=== PATIENT | male | born 1940 | race Caucasian/White ===

== ENCOUNTER 2019-06-17 22:33 | Observation (INO) ==
[2019-06-18 01:36] LABS: BASO# 0.01 X1000 (0.0-0.2); BASO% 0.1 % (0.0-0.8); EOS# 0.04 X1000 (0.0-0.7); EOS% 0.4 % (0.0-10.0); HEMATOCRIT 44.6 % (42.0-52.0); HEMOGLOBIN 14.1 g/dL (14.0-18.0); IMM GRAN# 0.03 X1000 (0.0-0.04); IMM GRAN% 0.3 % (0.0-0.5); LYMPH# 0.69 X1000 (1.2-3.4); LYMPH% 6.1 % (20.5-51.1); MCH 28.2 PG (27-31); MCHC 31.6 g/dL (33-37); MCV 89.2 FL (81-99); MONO# 0.99 X1000 (0.11-0.59); MONO% 8.8 % (1.7-9.3); MPV 9.2 FL (7.4-10.4); NEUT# 9.46 X1000 (1.4-6.5); NEUT% 84.3 % (42.2-75.2); PLT 169 X1000 (130-400); RDW 13.8 % (11.5-14.5); WBC 11.22 X1000 (4.8-10.8)
[2019-06-18 01:49] LABS: ALB/GLOB RATIO 1.5; ALBUMIN 3.7 g/dL (3.5-5.0); CALCIUM 9.9 mg/dL (8.8-10.2); CREATININE 1.2 mg/dL (0.7-1.2); POTASSIUM 4.5 mmol/L (3.5-5.1); TOTAL BILIRUBIN 0.77 mg/dL (0.20-1.00); TOTAL PROTEIN 6.2 g/dL (6.3-8.3)
[2019-06-18 01:51] LABS: INR 0.98; PROTIME 13.8 Seconds (11.0-16.0)
[2019-06-18 01:52] LABS: PTT 28.7 Seconds (22.3-41.8)
--- NOTE | 2019-06-18 01:52 | PROVIDER DOCUMENTATION ---
This chart was entered by Apple Benavides Scribe, acting as scribe for Collin Angela MD. HPI-General Adult - General Chief Complaint: Post Op Complaint Stated Complaint: TESTICLES ARE SWOLLEN, PAINFUL Time Seen by Provider: 06/17/19 22:44 Source: patient Allergies/Adverse Reactions: Patient Allergies Allergy/AdvReac Type Severity Reaction Status Date / Time No Known Allergies Allergy Verified 06/16/19 05:51 Home Medications: Home Medication List Medication Instructions Recorded Confirmed Last Taken Type Alprazolam [Xanax] 1 mg PO HS 12/13/14 06/16/19 06/14/19 History Levothyroxine [Synthroid] 137 microgm PO DAILY 12/13/14 06/16/19 06/15/19 10:00 History Tamsulosin [Flomax] 0.4 mg PO DAILY 12/13/14 06/16/19 12/13/14 08:00 History Vit C/Vit E Acetate/Lutein/Min 1 each PO DAILY 12/13/14 06/16/19 12/13/14 08:00 History [Ocuvite Lutein Capsule] PRAVAstatin [Pravachol] 10 mg PO DAILY 08/21/18 06/16/19 06/14/19 History Cholecalciferol (Vitamin D3) 25 mg PO DAILY 06/12/19 06/16/19 06/15/19 10:00 History [Vitamin D3] Meloxicam [Mobic] 15 mg PO PRN PRN 06/12/19 06/16/19 06/07/19 History Hydrocodone/Acetaminophen [[place] 1 ea PO Q4-6H PRN PRN #30 tab 06/16/19 Unknown Rx 10-325 Tablet] - History of Present Illness -Gen Adult Nature of Presenting Problems: Pt is 79/m presenting to ED w/ c/o testicle swelling after having double hernia surgery yesterday morning. He wa seen yesterday and a reina cath was put in, and is still in place. Location of Pain/Injury: reports: genitalia (testicles) Pain Radiation: reports: no radiation Quality of Pain: reports: aching Severity: reports: moderate Onset/Duration: reports: just prior to arrival Timing: reports: still present Context/Activities at Onset: reports: none Modifying Factors: improves with: nothing Associated Symptoms: denies: fever/chills, nausea, vomiting, weakness Similar Symptoms Previously?: No Recently seen or treated by another doctor?: No Review of Systems - Adult - REVIEW OF SYSTEMS - ADULT Constitutional: reports: no symptoms reported. denies: chills Eyes: reports: no symptoms reported Ears, Nose, Mouth & Throat: reports: no symptoms reported Cardiovascular: reports: no symptoms reported Gastrointestinal: denies: abdominal pain, nausea, vomiting Genitourinary: reports: no symptoms reported Musculoskeletal: reports: no symptoms reported Integumentary: reports: no symptoms reported Neurological: reports: no symptoms reported. denies: dizziness/vertigo, headache/migraines Psychiatric: reports: no symptoms reported Endocrine: reports: no symptoms reported Hematologic/Lymphatic: reports: no symptoms reported Allergic/Immunologic: reports: no symptoms reported Past History - Adult - PAST MEDICAL HISTORY-ADULT Review of Records: reports: Old Records Reviewed, Nursing Assessment Review, Medications Reviewed, Social history reviewed & non-contributory. Major Childhood Illnesses: reports: denies history Cardiovascular: reports: denies history Respiratory: reports: denies history Gastrointestinal: reports: denies history Obstetrical/Gynecological: reports: denies history Genitourinary: reports: denies history Musculoskeletal: reports: denies history Neurological: reports: denies history Psychiatric: reports: denies history Endocrine/Immune: reports: thyroid disorder Other Conditions: reports: denies history - PRIOR SURGERIES/PROCEDURES Surgical/Procedure History: reports: reviewed, not pertinent, appendectomy - IMMUNIZATION STATUS Childhood Immunizations: See Nurse Assessment Flu Vaccine: See Nurse Assessment - FAMILY HISTORY Family History: reviewed, not pertinent - SOCIAL HISTORY Smoking: denies, non-smoker Substance Use: none/never Alcohol Use Frequency: never Living Situation: family Physical Exam-General - PHYSICAL EXAM-ADULT Initial Vital Signs Reviewed: Yes - CONSTITUTIONAL General Appearance: appears well, alert, no apparent distress - EYES Eyes: PERRL/EOMI, pink conjunctivae - HEAD, EARS, NOSE, MOUTH & THROAT HENMT: normocephalic/atraumatic, moist mucous membranes - NECK Neck: non-tender, full range of motion, supple, normal inspection - RESPIRATORY Respiratory: lungs clear - CARDIOVASCULAR Cardiovascular: regular rate, rhythm - GENITOURINARY Male Genitalia: circumcised, scrotal swelling (scrotum is swollen and filled w/ blood), testicular tenderness - MUSCULOSKELETAL Back Exam: normal inspection Extremity: normal range of motion, non-tender, normal gait, normal inspection - SKIN Integumentary: normal color, warm/dry - NEUROLOGIC Neurologic: grossly normal - PSYCHIATRIC Psych/Mental Status: normal mood/affect, normal thought content, normal thought process, oriented x 3 Progress - PLAN OF CARE/RESULTS Progress/Plan/Lab Results: Vital Signs - 8 hr 06/17/19 22:37 Temperature 98.2 F Pulse Rate 90 Respiratory Rate 16 Blood Pressure 140/63 O2 Sat by Pulse Oximetry 91 L US shows possible partial torsion of left testicle, spoke with Dr. Reece covering for Dr. Gerard, wanted me to consult urology, spoke with Dr. Granda and he decided to take the patient to the OR, will admit Result Diagrams: 06/18/19 01:26 06/18/19 01:26 - ULTRASOUND (By Radiology) 1 US Study: Scrotum Impression: Abnormal (1. Enlarged heterogenous epididymis are indeterminate. These aren't hyperemic. Consider sequela of prior epididymitis, or chronic inflammation. 2 Small heterogenous testicles. There is limited to no visualization of venous waveforms in the left tsticle, and this could be due to the available samiling, or partial torsion with venous outflow obstruction. 3. Indeterminate area of heterogencity and prominent vessels in the left scrotum. Hernia could have the appearance.) Departure - Departure Date of Disposition Decision: 06/18/19 Time of Disposition Decision: 01:51 DIAGNOSIS: Scrotal hematoma, Left testicular torsion Disposition: ADMITTED INPATIENT 09 Certified Medical Emergency: Emergent Condition: Fair Referrals and Follow-Ups: Camilo Longoria MD [Primary Care Provider] - - Critical Care Note This patient required my direct & personal management of CC.: No Attestation - Physician/ SERVANDO Attestation Patient care was provided by Advanced Practice Provider:: No The physician spent face to face time with patient:: Yes Advanced Practice Provider documentation review:: Supervising physician onsite and consulted in the evaluation and care of this patient. The physician did have a face to face encounter with the patient. This chart was documented by the indicated scribe, (Apple Benavides Scribe) and accurately reflects the services I performed and decisions made by me, Collin Angela MD, as attested by the provider's signature.
[2019-06-18] MEDS ORDERED: LR 1,000 ML IV ONE (02:21)
[2019-06-18] MEDS ORDERED: DIPRIVAN 1% ONE (02:23)
[2019-06-18] MEDS ORDERED: XYLOCAINE-MPF 2% ONE (02:23)
[2019-06-18] MEDS ORDERED: KEFZOL 1 GM/D5W 1 GM/50 ML IVPB ONE (02:46)
[2019-06-18] MEDS ORDERED: MARCAINE 0.25% PF ONE (03:26)
[2019-06-18] MEDS ORDERED: EPHEDRINE ONE (03:27)
[2019-06-18] MEDS ORDERED: BACITRACIN OINTMENT ONE (03:38)
[2019-06-18] MEDS ORDERED: ZOFRAN ONE (03:39)
[2019-06-18] MEDS ORDERED: PHENERGAN IV PRN (04:50)
[2019-06-18] MEDS ORDERED: LR 1,000 ML ONE (04:57)
[2019-06-18] MEDS ORDERED: SODIUM CHLORIDE 0.9% INJ PRN (05:00)
[2019-06-18] MEDS ORDERED: NORCO-7.5 PO PRN (05:00)
[2019-06-18] MEDS ORDERED: NORCO-5 PO PRN (05:00)
[2019-06-18] MEDS ORDERED: NORCO-10 PO PRN (05:00)
--- NOTE | 2019-06-18 07:57 | Diag Imaging Result Doc PS360 ---
EXAM: US SCROTUM 06/18/2019 HISTORY: r/o torsion TECHNIQUE: Scrotal ultrasound COMMENT: There is a small right hydrocele. There is color Doppler flow in the right testicle. The right epididymis is somewhat enlarged. There is color Doppler flow in the left testicle, although this is diminished, with an enlarged and hyperechoic spermatic cord and epididymis. There is a small amount of fluid in the left hemiscrotum. There is considerable skin thickening. There is a septated cystic mass in the left testicle measuring 3 mm in diameter. IMPRESSION: Enlargement left spermatic cord and/or inguinal hernia. Distended vessels. Enlarged bilateral epididymides. Diminished color Doppler flow in the left testicle. Small cyst in the left testicle. The possibility of partial or de-torsed torsion on the left, and/or inguinal hernia cannot be excluded. The possibility of bilateral epididymitis cannot be excluded. Electronically signed by Luis A Becerril 06/18/2019 7:55 AM
[2019-06-18 12:13] VITALS: BP 134/66
--- NOTE | 2019-06-22 19:37 | OPERATIVE NOTE ---
PROCEDURE DATE: 06/18/2019 SURGEON: Vipul Granda MD. 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 POSTOPERATIVE DIAGNOSIS: Left testis vascular compromise with left scrotal pain. PROCEDURE PERFORMED: Left scrotal exploration and left scrotal orchiectomy. ANESTHESIA: General via laryngeal mask. FINDINGS: The scrotum and distal inguinal areas had significant purpura. After an incision was made in the skin going through the dartos layer, it was saturated with blood. The left testis was dusky, but not necrotic. The left epididymis was edematous and the pampiniform plexus was clotted. INDICATION FOR PROCEDURE: This 79-year-old male was status post laparoscopic robot-assisted bilateral inguinal hernia repair. He developed scrotal purpura and pain after the surgery. He presented to the emergency room about 1 day after the surgery. A scrotal ultrasound revealed decreased arterial flow to the left testis and essentially no venous outflow. The epididymis on each side was edematous. The physical exam revealed the left scrotal and testicle area to be tender with palpation. The right side was not tender. DESCRIPTION OF PROCEDURE: After informed consent was obtained from the patient and him receiving IV antibiotics, he was taken to the main OR and placed in a supine position. General anesthesia via laryngeal mask was achieved. He was then prepped and draped in the usual sterile fashion for scrotal surgery. A longitudinal skin incision was made along the scrotal raphe for a distance of about 4 cm. This was taken through the dartos tunica that was thickened with blood secondary to the previous hernia repair. The left testis was brought up under the inner layer of the dartos and the tissue was incised. The testis was delivered into the wound and the tunica vaginalis was incised. The testis was dusky, but not necrotic. However, the epididymis was significantly swollen and there was clot in the pampiniform plexus. Because this would probably propagate and the testis would eventually become necrotic, it was decided to remove the testis at that time. The YVES vascular stapler, the medium vascular load 30 mm, was used to staple and incise the cord. Two vascular loads were used. Approximately 3 mL of 0.5% Marcaine without epinephrine was injected in the left cord. The wound was irrigated. A quarter-inch [place] drain was placed through a separate stab incision and sutured to the skin with 3-0 chromic. The dartos tunica was then reapproximated with a running locking suture of 3-0 chromic. The skin was reapproximated with a running simple suture of 3-0 chromic. Approximately 3 mL of 0.5% Marcaine was injected subcutaneously beneath the wound. An OpSite was placed over the incision. A scrotal turban dressing was placed using 3-inch Chana. This was reinforced with fluffed gauze and mesh briefs were placed. He tolerated the procedure well. Estimated blood loss was 5 mL. He was taken to the recovery room in good condition. cc: Vipul Granda MD
== END 2019-06-18 14:25 | disposition home or self-care (01) ==
LOC: 4N 22:33 → ED 22:33
PROVIDERS: ADMIT Urology; ATTEND Urology
CPT/HCPCS: 76870; 80053; 85025; 85610; 85730; 88304; 88313; 99285; A9270; G0378; J0690; J2405; J7120; S0020